=== PATIENT | female | born 2000 | race African-American/Black ===

== ENCOUNTER 2021-02-04 16:53 | Emergency (ER) | payer OTHER ==
[~2021-02-04] VITALS: Ht 160 cm; Wt 84.9 kg
[2021-02-04] MEDS ORDERED: MACR100C43 PO (19:55)
[2021-02-04] MEDS ORDERED: DIFL150T PO (19:55)
[2021-02-04 20:21] VITALS: BP 136/85
[2021-02-04 22:54] LABS: GC DNA AMPLIFICATION NEGATIVE (NEGATIVE)
== END 2021-02-04 20:20 | disposition home or self-care (01) ==
LOC: M ED 16:53
DX: N30.00 Acute cystitis without hematuria (principal); N89.8 Other specified noninflammatory disorders of vagina